=== PATIENT | male | born 1965 | race Caucasian/White ===

== ENCOUNTER 2017-03-28 14:35 | Inpatient (IN) | payer MEDICARE, OTHER ==
[2017-03-28] MEDS: IV RINGERS,LACTATED 1000ML 1,000 ML IV (15:22)
[2017-03-28 15:43] LABS: ADD MAN DIFF? NO
[2017-03-28 15:47] LABS: BASO % 0 % (0-3); EOS # 0.1 x10^3/uL (0.0-0.7); EOS % 1 % (0-3); HEMATOCRIT 40.8 % (39.0-53.0); HEMOGLOBIN 13.6 g/dL (13.0-17.5); LYMPH # 1.9 x10^3/uL (1.0-4.8); LYMPH % 23 % (24-48); MEAN CORPUSCULAR HEMOGLOBIN 28 pg (25-35); MEAN CORPUSCULAR HGB CONC 33 g/dL (31-37); MEAN CORPUSCULAR VOLUME 85 fL (79-100); MONO # 0.9 x10^3/uL (0.0-1.1); MONO % 11 % (0-9); NEUT # 5.4 x10^3uL (1.8-7.7); NEUT % 65 % (31-73); PLATELET COUNT 205 x10^3/uL (140-400); RED BLOOD COUNT 4.79 x10^6/uL (4.30-5.70); WHITE BLOOD COUNT 8.3 x10^3/uL (4.0-11.0)
[2017-03-28] MEDS ORDERED: PROPOFOL 20 ML IV (15:47)
[2017-03-28] MEDS ORDERED: ONDANSETRON PF 4 MG/2 ML VIAL. (15:47)
[2017-03-28] MEDS ORDERED: DEXAMETHASONE SOD PHOS 20 MG/5 ML VIAL. (15:47)
[2017-03-28] MEDS ORDERED: LIDOCAINE 2% PF Vial for OR 5 ML VIAL. (15:47)
[2017-03-28] MEDS ORDERED: fentaNYL PF VIAL 100 MCG/2 ML VIAL (15:48)
[2017-03-28 15:58] LABS: ANION GAP 10 (6-14); CARBON DIOXIDE 30 mmol/L (21-32); CHLORIDE 99 mmol/L (98-107); POTASSIUM 3.8 mmol/L (3.5-5.1); SODIUM 139 mmol/L (136-145)
[2017-03-28] MEDS ORDERED: IV RINGERS,LACTATED 1000ML 1,000 ML IV (17:55)
[2017-03-28] MEDS ORDERED: MORPHINE SULFATE 2 MG/ML DISP.SYRIN. IV ×2 (18:00→19:15)
[2017-03-28] MEDS ORDERED: PROCHLORPERAZINE 10 MG/2 ML VIAL. IV ×2 (18:00→19:15)
[2017-03-28] MEDS ORDERED: ONDANSETRON PF 4 MG/2 ML VIAL. IV (18:00)
[2017-03-28] MEDS ORDERED: LIDOCAINE 1% PF 2 ML VIAL. ID (18:00)
[2017-03-28] MEDS: VANCOMYCIN 1 GM in IV 1/2 NORMAL SALINE 250 ML IV (18:30)
[2017-03-28] MEDS: HYDROmorphone 2 MG/ML VIAL IV ×2 (19:08→19:22)
[2017-03-28] MEDS ORDERED: oxyCODONE/APAP 5/325 1 TAB TABLET PO (19:15)
[2017-03-28] MEDS ORDERED: CALCIUM CARBONATE 500 MG TAB.CHEW PO (19:15)
[2017-03-28] MEDS ORDERED: fentaNYL PF VIAL 100 MCG/2 ML VIAL IV ×2 (19:15)
[2017-03-28] MEDS ORDERED: ZOLPIDEM 5 MG TABLET. PO (19:15)
[2017-03-28] MEDS ORDERED: MORPHINE SULFATE 4 MG/ML DISP.SYRIN. IV ×2 (19:15)
[2017-03-28] MEDS ORDERED: oxyCODONE/APAP 7.5/325 1 TAB TABLET PO (19:15)
[2017-03-28] MEDS ORDERED: HYDROcodone/APAP 7.5/325MG 1 TAB TABLET PO (19:15)
[2017-03-28] MEDS ORDERED: HYDROcodone/APAP 10/325 1 TAB TABLET PO (19:15)
[2017-03-28] MEDS ORDERED: DEXTROSE 50% 25 GM / 50ML DISP.SYRIN. IV (19:15)
[2017-03-28] MEDS ORDERED: 0.9 % SODIUM CHLORIDE 10 ML DISP.SYRIN. IV (19:15)
[2017-03-28] MEDS ORDERED: MORPHINE SULFATE 10 MG/ML VIAL. IV (19:15)
[2017-03-28] MEDS ORDERED: ACETAMINOPHEN 325 MG TABLET. PO (19:15)
[2017-03-28] MEDS ORDERED: diphenhydrAMINE 50 MG/ML VIAL IV (19:15)
[2017-03-28] MEDS: traMADol 50 MG TABLET PO ×2 (19:36→22:37)
[2017-03-28] MEDS: IV DEXTROSE 5 %-0.45 % NACL 1,000 ML IV (21:00)
[2017-03-29] MEDS: traMADol 50 MG TABLET PO ×4 (05:49→23:06)
[2017-03-29] MEDS ORDERED: MAGNESIUM HYDROXIDE 2,400 MG/30 ML ORAL.SUSP. PO (06:00)
[2017-03-29] MEDS: VANCOMYCIN 1 GM in IV 1/2 NORMAL SALINE 250 ML IV (06:39)
[2017-03-29] MEDS: IV DEXTROSE 5 %-0.45 % NACL 1,000 ML IV ×2 (07:00→16:33)
[2017-03-29] MEDS: SENNOSIDES/DOCUSATE 8.6/50MG TABLET. PO (09:45)
[2017-03-29] MEDS: VANCOMYCIN PER PHARMACY MC ×2 (10:32→13:29)
[2017-03-29 11:08] LABS: GFR 101.1
[2017-03-29 11:08] LABS: CREATININE 0.8 mg/dL (0.7-1.3)
[2017-03-29] MEDS ORDERED: BISACODYL 10 MG SUPP.RECT. PR (16:00)
[2017-03-29] MEDS: VANCOMYCIN 1.25 GM in IV NORMAL SALINE 250ML 250 ML IV (18:39)
[2017-03-29] MEDS: LACTOBACILLUS RHAMNOSUS GG 1 CAPSULE. PO (21:48)
[2017-03-29] MEDS: LISINOPRIL 20 MG TABLET PO (21:49)
[2017-03-30 05:52] LABS: ANION GAP 4 (6-14); BLOOD UREA NITROGEN 14 mg/dL (8-26); CALCIUM 8.3 mg/dL (8.5-10.1); CARBON DIOXIDE 34 mmol/L (21-32); CHLORIDE 103 mmol/L (98-107); CREATININE 0.9 mg/dL (0.7-1.3); GFR 88.3; GLUCOSE 109 mg/dL (70-99); POTASSIUM 3.9 mmol/L (3.5-5.1); SODIUM 141 mmol/L (136-145)
[2017-03-30] MEDS: traMADol 50 MG TABLET PO ×2 (06:33→12:56)
[2017-03-30] MEDS: PANTOPRAZOLE 40 MG TABLET.DR. PO (07:37)
[2017-03-30] MEDS: VANCOMYCIN 1.25 GM in IV NORMAL SALINE 250ML 250 ML IV (07:37)
[2017-03-30] MEDS: LACTOBACILLUS RHAMNOSUS GG 1 CAPSULE. PO (09:06)
[2017-03-30] MEDS: SENNOSIDES/DOCUSATE 8.6/50MG TABLET. PO (09:06)
[2017-03-30] MEDS: VANCOMYCIN PER PHARMACY MC (15:43)
== END 2017-03-30 18:22 | disposition home or self-care (01) | DRG 465 ==
LOC: SURG 14:35 → 4 NORTH 19:06
PROC: 0JBH0ZZ Excision of Left Lower Arm Subcutaneous Tissue and Fascia, Open Approach (ICD-10-PCS; principal; 2017-03-28 16:10)
DX: M71.122 Other infective bursitis, left elbow (principal); I10 Essential (primary) hypertension; Z96.653 Presence of artificial knee joint, bilateral; Z88.8 Allergy status to other drugs, medicaments and biological substances
CPT/HCPCS: 36415; 80048; 80051; 82565; 85025; 87071; 87075; 87186; 87205; J1100; J1170; J2405; J2704; J3010; J3370; J7050